=== PATIENT | female | born 1955 | race Caucasian/White ===

== ENCOUNTER 2020-02-10 05:54 | Inpatient (IN) | payer SELFPAY ==
[2020-02-10 06:37] LABS: Actual Bicarbonate (HCO3a) 23.4 mEq/L (22-28); Analyzer IN Cardio ER; Base Excess (BEa) -2.3 mEq/L (-2.0 to +3.0); CO2 Tension 43.7 mmHg (35.0-45.0); Calcium, Ionized (arterial) 1.25 mmol/L (1.12-1.30); Carboxyhemoglobin (COHb) 2.1 gm% (0.0-3.0); Hemoglobin (Hb) 17.2 g/dL (12.0-16.0); Potassium - ABG Lab 4.08 mmol/L (3.70-5.30); pH, Arterial 7.35 (7.35-7.45)
[2020-02-10 06:41] LABS: ALV-art Gradient 73.015 mmHg (0-20); Puncture Site LRA
[2020-02-10 06:50] LABS: #Basophils 0.1 thou/uL (0.0-0.2); #Eosinphils 0.1 thou/uL (0.0-0.7); #Lymphocytes 1.9 thou/uL (1.20-3.40); #Monocytes 0.7 thou/uL (0.11-0.59); #Neutrophils 8.6 thou/uL (1.40-6.50); %Basophils 0.5 % (0.0-1.0); %Eosinophils 1.1 % (0.0-10.0); %Lymphocytes 16.7 % (21.0-51.0); %Monocytes 6.4 % (0.0-10.0); %Neutrophils 75.2 % (42.0-75.0); Hemoglobin 17.2 g/dL (12.0-16.0); Mean Corpuscular HGB CONC 32.2 g/dL (32.0-36.0); Mean Corpuscular Hemoglobin 31.8 pg (27.0-31.0); Mean Corpuscular Volume 98.8 fL (78.0-98.0); Mean Platelet Volume 9.2 fL (7.4-10.4); Platelet Count 192 thou/uL (130-400); RBC Distribution Width 12.3 % (11.5-14.5); White Blood Cell (WBC) Count 11.4 thou/uL (4.8-10.8)
[2020-02-10 07:13] LABS: ALT (SGPT) 10 U/L (8-55); AST (SGOT) 15 U/L (5-34); Albumin 4.5 g/dL (3.4-4.8); Alkaline Phosphatase 103 U/L (40-110); Anion Gap 16 mmol/L (10-20); BUN (Urea Nitrogen) 10 mg/dL (9.8-20.1); Bilirubin, Total 0.6 mg/dL (0.2-1.2); Calc. Creatinine Clearance 0 mL/min (70-130); Calcium 9.2 mg/dL (7.8-10.44); Carbon Dioxide 21 mmol/L (23-31); Chloride 107 mmol/L (98-107); Globulin 3.1 g/dL (2.4-3.5); Glucose 165 mg/dL (80-115); Potassium 4.1 mmol/L (3.5-5.1); Protein, Total 7.6 g/dL (6.0-8.3); Sodium 140 mmol/L (136-145)
[2020-02-10] MEDS ORDERED: Ketorolac Tromethamine 30 MG/ML VIAL ONE (07:15)
[2020-02-10] MEDS ORDERED: Azithromycin 500 MG VIAL ONE (07:15)
[2020-02-10 07:33] LABS: CKMB 2.7 ng/mL (0-6.6)
[2020-02-10] MEDS ORDERED: Aspirin 325 MG TAB ONE (07:59)
--- NOTE | 2020-02-10 08:07 | RAD ---
RADIOGRAPH CHEST 1 VIEW: DATE: 02/10/2020 HISTORY: 64-year-old female with dyspnea FINDINGS: There is hyperinflation of the lungs, consistent with COPD. There is no evidence of airspace density, pulmonary edema, cardiomegaly, or pneumothorax. The lateral costophrenic angles are not effaced. Prominent interstitial markings. IMPRESSION: 1) No acute cardiopulmonary findings. 2) emphysema.
[2020-02-10 08:51] LABS: SARS-CoV-2 NAA Rapid Test Not Detected (NotDetected)
[2020-02-10] MEDS ORDERED: HumaLOG 300 UNITS/3 ML VIAL SC PRN ×2 (10:11)
[2020-02-10] MEDS ORDERED: Bisacodyl 10 MG SUPP PR PRN (10:11)
[2020-02-10] MEDS ORDERED: Senokot S 8.6-50 MG TAB PO PRN (10:11)
[2020-02-10] MEDS ORDERED: Dextrose 5% in Water 1,000 ML IV PRN (10:11)
[2020-02-10] MEDS ORDERED: Dextrose 50% Abboject 50 ML SYRINGE SLOW IVP PRN (10:11)
[2020-02-10] MEDS ORDERED: Ondansetron PF 4 MG/2 ML Vial IVP PRN (10:11)
[2020-02-10] MEDS ORDERED: Sodium Chloride 0.9% 1,000 ML IV SCH (10:15)
[2020-02-10] MEDS ORDERED: Levofloxacin 500 mg/D5W 100 ml Premix Bag ONE (12:17)
[2020-02-10] MEDS ORDERED: methylPREDNISolone Sod Succ 40 MG VIAL ONE (12:17)
[2020-02-10] MEDS: methylPREDNISolone Sod Succ 40 MG VIAL IVP SCH ×3 (12:25→23:28)
--- NOTE | 2020-02-10 12:30 | HP ---
REASON FOR ADMISSION: Acute on chronic COPD exacerbation, acute respiratory failure with hypoxia. HISTORY OF PRESENTING ILLNESS: The patient gives history of shortness of breath for the last 2 days or so now. This has been progressively getting worse to the point that she was tripoding and summoned EMS. She has taken multiple nebulization and inhalers at home despite which her shortness of breath persisted. She is not on any home oxygen. She has never been intubated in the past. The patient continues to smoke half pack a day. No fever. She has cough with expectoration of yellowish sputum. No exposure to COVID as such per the patient. She is taking care of her sick at home per the patient. PAST MEDICAL AND SURGICAL HISTORY: History of COPD, hypertension. No heart disease. No prior surgeries per the patient. CURRENT MEDICATIONS: 1. Lisinopril 2.5 mg p.o. daily. 2. Singulair 10 mg p.o. daily. 3. DuoNeb q.4 hourly p.r.n. 4. Albuterol inhaler q.6 hourly p.r.n. 5. Symbicort inhaler 2 puffs twice daily. ALLERGIES: NO KNOWN DRUG ALLERGIES. PERSONAL HISTORY: Smokes half pack a day. Does not abuse alcohol or drugs. She lives at home with her , who is sick apparently and takes care of him. FAMILY HISTORY: Mother at the age of 68, she had massive MD. Father at the age of 75 from natural causes. CODE STATUS: Full. Power of digital specialist is her or any of her 6 children. REVIEW OF SYSTEMS: CONSTITUTIONAL: Negative for weight loss or gain, ability to conduct usual activities. SKIN: Negative for rash, itching. EYES: Negative for double vision, pain. ENT/MOUTH: Negative for nose bleeding, neck stiffness, pain, tenderness. CARDIOVASCULAR: Negative for palpitations, dyspnea on exertion, orthopnea. RESPIRATORY: Negative for shortness of breath, wheezing, cough, hemoptysis, fever or night sweats. GASTROINTESTINAL: Negative for poor appetite, abdominal pain, heartburn, nausea, vomiting, constipation, or diarrhea. GENITOURINARY: Negative for urgency, frequency, dysuria, nocturia. MUSCULOSKELETAL: Negative for pain, swelling. NEUROLOGIC/PSYCHIATRIC: Negative for anxiety, depression. ALLERGY/IMMUNOLOGIC: Negative for skin rash, bleeding tendency. PHYSICAL EXAMINATION: GENERAL: The patient is a 64-year-old female, who is currently in mild respiratory distress. VITAL SIGNS: Blood pressure 130/110, pulse 100 per minute, respiratory rate 24 per minute, temperature 98 degrees Fahrenheit, saturating 98% on 2 L nasal cannula. NECK: Supple. No elevated JVD. HEENT: Eyes, extraocular muscles intact. Pupils reacting to light. Oral cavity, mucous membranes are dry. No exudates or congestion. CARDIOVASCULAR SYSTEM: S1, S2 heard. Tachycardic. No murmur. RESPIRATORY SYSTEM: Air entry 1+, bilateral. Scattered wheezes plus, bilateral. Rhonchi plus, bilateral. ABDOMEN: Soft, bowel sounds heard. No tenderness, rigidity, or guarding. EXTREMITIES: No peripheral edema or calf tenderness. VASCULAR SYSTEM: Peripheral pulses 1+, bilateral. No ischemic ulcers or gangrene. CENTRAL NERVOUS SYSTEM: No gross focal motor deficits noted. The patient is alert, awake, and oriented well. PSYCHIATRIC SYSTEM: The patient's mood is euthymic. No hallucinations or delusions. LABORATORY DATA: Chest x-ray done shows changes of emphysema. No acute infiltrate. EKG done shows sinus rhythm at 106 beats per minute. There is Q-wave seen in V1, V2, V3. Troponin I is 0.06. BNP 42. COVID-19 PCR is negative. Albumin 4.5. Liver enzymes within normal limits. BUN 10, creatinine 0.6, serum bicarb 21, serum glucose 165. Blood gas done shows a pH of 7.35, pCO2 of 43, pO2 of 72. White count of 11, H and H 17 and 53, platelet count 192 with 75% neutrophils, MCV is 98. CLINICAL IMPRESSION AND PLAN: The patient will be admitted to medical floor for acute on chronic obstructive pulmonary disease exacerbation, acute respiratory failure with hypoxia with known history of smoking. The patient has chronic emphysema based on xray and heavy history of smoking. She will be on DuoNeb q.6 hourly, empiric Levaquin, Solu-Medrol 40 mg IV q.6 hourly. We will also place her on normal saline at 60 mL/hour. Initial COVID screen is negative. The patient is full code. I have discussed this with her. We will consult Dr. Mcdonald if she were to get worse, she will be placed on BiPAP and transferred to [facility]. For now, she will be on a heart healthy diet and we will closely monitor her on medical floor. Job ID: [id number] MTDLior
[2020-02-10] MEDS: Guaifenesin DM 100-10/5 ML UDCUP PO PRN (19:31)
[2020-02-10] MEDS: Famotidine 20 MG TAB PO SCH (19:31)
[2020-02-11] MEDS: methylPREDNISolone Sod Succ 40 MG VIAL IVP SCH ×4 (05:28→23:12)
[2020-02-11 07:15] LABS: #Monocytes 0.3 thou/uL (0.11-0.59); #Neutrophils 7.5 thou/uL (1.40-6.50); %Basophils 0.3 % (0.0-1.0); %Lymphocytes 11.5 % (21.0-51.0); %Monocytes 3.5 % (0.0-10.0); %Neutrophils 84.7 % (42.0-75.0); Hemoglobin 15.4 g/dL (12.0-16.0); Mean Corpuscular HGB CONC 32.5 g/dL (32.0-36.0); Mean Corpuscular Hemoglobin 31.6 pg (27.0-31.0); Mean Corpuscular Volume 97.4 fL (78.0-98.0); Mean Platelet Volume 9.2 fL (7.4-10.4); Platelet Count 185 thou/uL (130-400); RBC Distribution Width 12.2 % (11.5-14.5); Red Blood Cell (RBC) Count 4.89 mill/uL (4.20-5.40); White Blood Cell (WBC) Count 8.8 thou/uL (4.8-10.8)
[2020-02-11 07:25] LABS: Chloride 104 mmol/L (98-107); Potassium 4.4 mmol/L (3.5-5.1); Sodium 139 mmol/L (136-145)
[2020-02-11 07:26] LABS: Calcium 9.3 mg/dL (7.8-10.44); Glucose 141 mg/dL (80-115)
[2020-02-11 07:28] LABS: Carbon Dioxide 26 mmol/L (23-31)
[2020-02-11 07:30] LABS: Calc. Creatinine Clearance 0 mL/min (70-130)
[2020-02-11 07:31] LABS: BUN (Urea Nitrogen) 14 mg/dL (9.8-20.1)
[2020-02-11] MEDS: Enoxaparin Sodium 40 MG/0.4 ML SYRINGE SC SCH (08:06)
[2020-02-11] MEDS: Famotidine 20 MG TAB PO SCH ×2 (08:06→20:19)
[2020-02-11 08:18] LABS: Anion Gap 13 mmol/L (10-20)
[2020-02-11] MEDS ORDERED: FLU VACC QS2020-21(6MOS UP)/PF 60 MCG/0.5 ML SYRINGE IM ONE (09:00)
--- NOTE | 2020-02-11 10:21 | PDOC.HOSPP ---
- Subjective Encounter Date: 02/11/20 Encounter Time: 08:45 Subjective: sob and wheezing is better is eating her breakfast - Objective Vital Signs & Weight: Vital Signs (12 hours) Temp Pulse Resp BP Pulse Ox 02/11/20 10:08 101 H 24 H 100 02/11/20 08:00 98.1 F 99 24 H 140/88 98 02/11/20 05:38 92 20 99 02/11/20 04:55 97.8 F 92 18 117/82 99 02/10/20 23:53 99 22 H 92 L 02/10/20 23:35 97.8 F 92 20 123/84 99 I&O: 02/10/20 02/11/20 02/12/20 06:59 06:59 06:59 Intake Total 1240 Output Total 500 Balance 740 Result Diagrams: 02/11/20 07:05 02/11/20 07:05 Additional Labs: Accuchecks 02/11/20 02/10/20 02/10/20 04:23 20:14 17:55 POC Glucose 130 H 158 H 134 H Hospitalist ROS - Medication Medications: Active Medications Generic Name Dose Route Start Last Admin Trade Name Freq PRN Reason Stop Dose Admin Albuterol/Ipratropium 3 ml 02/10/20 13:00 02/11/20 05:38 Ipratropium/Albuterol Sulfate 3 Ml Neb NEB 3 ml [id number] EWA Administration Albuterol/Ipratropium 3 ml 02/10/20 19:09 02/11/20 10:08 Ipratropium/Albuterol Sulfate 3 Ml Neb NEB 3 ml Q4H PRN Administration SOB/WHEEZE Enoxaparin Sodium 40 mg 02/11/20 09:00 02/11/20 08:06 Enoxaparin Sodium 40 Mg/0.4 Ml Syringe SC 40 mg 0900 EWA Administration Famotidine 20 mg 02/10/20 21:00 02/11/20 08:06 Famotidine 20 Mg Tab PO 20 mg BID EWA Administration Guaifenesin/Dextromethorphan 15 ml 02/10/20 10:11 02/10/20 19:31 Guaifenesin Dm 100-10/5 Ml Udcup PO 15 ml Q4H PRN Administration Cough Levofloxacin 500 mg/ Device 100 mls @ 100 mls/hr 02/10/20 12:00 02/10/20 12:25 IVPB 100 mls 1200 EWA Administration Methylprednisolone Sodium Succinate 40 mg 02/10/20 12:00 02/11/20 05:28 Methylprednisolone Sod Succ 40 Mg Vial IVP 40 mg Q6HR EWA Administration - Exam General Appearance: awake alert Eye: PERRL, anicteric sclera ENT: no oropharyngeal lesions, moist mucosa Neck: supple, no JVD Heart: RRR, no murmur Respiratory: no rales, rhonchi, wheezes Gastrointestinal: soft, non-tender, non-distended, normal bowel sounds Extremities: no cyanosis, no edema Neurological: cranial nerve grossly intact, no focal deficits Psychiatric: normal affect, A&O x 3 Hosp A/P (1) COPD exacerbation Code(s): J44.1 - CHRONIC OBSTRUCTIVE PULMONARY DISEASE W (ACUTE) EXACERBATION Status: Acute (2) Acute respiratory failure with hypoxia Code(s): J96.01 - ACUTE RESPIRATORY FAILURE WITH HYPOXIA Status: Acute (3) Tobacco abuse Code(s): Z72.0 - TOBACCO USE Status: Chronic (4) HTN (hypertension) Code(s): I10 - ESSENTIAL (PRIMARY) HYPERTENSION Status: Chronic Qualifiers: Hypertension type: essential hypertension Qualified Code(s): I10 - Essential (primary) hypertension - Plan is slowly getting better on steroids, empiric chandler mcneill and is on 2 lts NC now to mobilize more around her bed hemostable encourage po fluid intake
[2020-02-11] MEDS: Acetaminophen 325 MG TAB PO PRN (11:40)
[2020-02-11] MEDS: Guaifenesin DM 100-10/5 ML UDCUP PO PRN (20:20)
[2020-02-12] MEDS: methylPREDNISolone Sod Succ 40 MG VIAL IVP SCH ×4 (05:09→23:50)
[2020-02-12 06:35] VITALS: BMI 19.5
[2020-02-12] MEDS: Enoxaparin Sodium 40 MG/0.4 ML SYRINGE SC SCH (08:20)
[2020-02-12] MEDS: Famotidine 20 MG TAB PO SCH ×2 (08:20→20:34)
[2020-02-12] MEDS ORDERED: Calcium Carbonate 500 MG ChewTAB PO PRN (08:39)
[2020-02-12] MEDS: Acetaminophen 325 MG TAB PO PRN (09:33)
[2020-02-12] MEDS: Guaifenesin DM 100-10/5 ML UDCUP PO PRN (12:27)
--- NOTE | 2020-02-12 12:45 | EKG ---
Test Reason : Blood Pressure : / mmHG Vent. Rate : 106 BPM Atrial Rate : 106 BPM P-R Int : 144 ms QRS Dur : 068 ms QT Int : 324 ms P-R-T Axes : 095 117 091 degrees QTc Int : 430 ms Suspect arm lead reversal, interpretation assumes no reversal Sinus tachycardia Biatrial enlargement Right axis deviation Anteroseptal infarct , age undetermined Abnormal ECG Confirmed by JEANNIE BERGMAN ([id number]), business editor SAMMY QURESHI ([id number]) on 02/12/2020 12:44:39 PM Referred By: Confirmed By:JEANNIE BERGMAN
[2020-02-12] MEDS ORDERED: Loratadine 10 MG TAB PO PRN (13:33)
--- NOTE | 2020-02-12 13:34 | PDOC.HOSPP ---
- Subjective Encounter Date: 02/12/20 Encounter Time: 13:34 Subjective: F/u: COPD She still is persistent tachypneic and out of breath. She says she felt better yesterday and then worsened again today and is not sure why. She has been smoking since the age of 18, 1/2 pack daily . Her symptoms worsened when anyone used her dryer. She states she discovered excessive amounts of lint coming from her dryer which was replaced. She has a dog at home, no other pets She reports some indigestion today - Objective Vital Signs & Weight: Vital Signs (12 hours) Temp Pulse Resp BP Pulse Ox 02/12/20 11:15 97.8 F 109 H 20 126/82 100 02/12/20 08:24 99 02/12/20 08:23 97.7 F 101 H 24 H 130/86 96 02/12/20 07:52 102 H 16 02/12/20 05:14 95 18 100 Weight Weight 121 lb 7 oz I&O: 02/11/20 02/12/20 02/13/20 06:59 06:59 06:59 Intake Total 1240 1150 Output Total 500 450 Balance 740 700 Result Diagrams: 02/11/20 07:05 02/11/20 07:05 Additional Labs: Accuchecks 02/11/20 19:56 POC Glucose 215 H Hospitalist ROS - Review of Systems Constitutional: denies: fever, chills - Medication Medications: Active Medications Generic Name Dose Route Start Last Admin Trade Name Freq PRN Reason Stop Dose Admin Acetaminophen 650 mg 02/10/20 10:11 02/12/20 09:33 Acetaminophen 325 Mg Tab PO 650 mg Q4H PRN Administration Headache/Fever/Mild Pain (1-3) Albuterol/Ipratropium 3 ml 02/10/20 13:00 02/12/20 07:52 Ipratropium/Albuterol Sulfate 3 Ml Neb NEB 3 ml [id number] EWA Administration Albuterol/Ipratropium 3 ml 02/10/20 19:09 02/11/20 10:08 Ipratropium/Albuterol Sulfate 3 Ml Neb NEB 3 ml Q4H PRN Administration SOB/WHEEZE Calcium Carbonate 1,000 mg 02/12/20 08:39 02/12/20 09:33 Calcium Carbonate 500 Mg Chewtab PO 1,000 mg DAILYPRN PRN Administration Heartburn or Indigestion Enoxaparin Sodium 40 mg 02/11/20 09:00 02/12/20 08:20 Enoxaparin Sodium 40 Mg/0.4 Ml Syringe SC 40 mg 0900 EWA Administration Famotidine 20 mg 02/10/20 21:00 02/12/20 08:20 Famotidine 20 Mg Tab PO 20 mg BID EWA Administration Guaifenesin/Dextromethorphan 15 ml 02/10/20 10:11 02/12/20 12:27 Guaifenesin Dm 100-10/5 Ml Udcup PO 15 ml Q4H PRN Administration Cough Levofloxacin 500 mg/ Device 100 mls @ 100 mls/hr 02/10/20 12:00 02/12/20 12:17 IVPB 100 mls 1200 EWA Administration Methylprednisolone Sodium Succinate 40 mg 02/10/20 12:00 02/12/20 12:16 Methylprednisolone Sod Succ 40 Mg Vial IVP 40 mg Q6HR EWA Administration - Exam General Appearance: NAD, awake alert Eye: PERRL, anicteric sclera ENT: normocephalic atraumatic, no oropharyngeal lesions Neck: no JVD Heart: RRR, no murmur, no gallops, no rubs Respiratory - other findings: crackles bilaterally with some wheezing Gastrointestinal: soft, non-tender, non-distended, normal bowel sounds Extremities: no cyanosis, no clubbing, no edema Skin: normal turgor, no lesions, no rashes Hosp A/P - Plan This is a 64 yewra old lady with COPD presenting with shortness of breath x 2 days #Acute hypoxic respiratory failure secondary to COPD exacerbation - continue duonebs and albuterol. Continue IV steroids and levaquin - add mucinex 600 mg po bid - add symbicort bid, resume home singulair - repeat chest X ray, if any signs of pneumonia will switch antibiotics to ceftriaxone/azithromycin - wean sats to 92% #Sinus tachycardia #Elevated troponin - likely supply demand ischemia. No chest pain - will check ECHO #Indigestion - continue pepcid
[2020-02-12] MEDS ORDERED: guaiFENesin ER 600 MG TAB PO SCH (14:00)
[2020-02-12] MEDS: Mometasone 200 MCG/Formoterol 5 MCG 120 PUFF INHALER INH SCH ×2 (14:39→20:07)
[2020-02-12 15:14] LABS: CKMB 6.8 ng/mL (0-6.6)
--- NOTE | 2020-02-12 16:27 | RAD ---
Exam: Chest one view HISTORY:Persistent tachypnea Comparison: 02/10/2020 FINDINGS: Cardiac silhouette: Normal Aorta: Atherosclerotic Pulmonary vessels: Normal Costophrenic angles: Clear LUNGS: Hyperinflated. Emphysematous changes predominantly in the right upper lobe. 1.2 cm nodule proj ects over the right lung base. Nipple shadow suspected. Confirmation with nipple markers. Pneumothorax: None Osseous abnormalities: None IMPRESSION: 1. Questionable nodule versus nipple markers projecting over the right lower lobe. 2 view chest radio graph with nipple markers is recommended. 2. Emphysematous changes without evidence of consolidation. Code lung nodule CODE T
[2020-02-12 18:19] LABS: CKMB 5.9 ng/mL (0-6.6)
[2020-02-12] MEDS: guaiFENesin ER 600 MG TAB PO SCH (20:34)
[2020-02-12] MEDS: Montelukast Sodium 10 mg Tablet PO SCH (20:34)
[2020-02-13] MEDS: methylPREDNISolone Sod Succ 40 MG VIAL IVP SCH ×3 (05:46→17:28)
[2020-02-13] MEDS: Mometasone 200 MCG/Formoterol 5 MCG 120 PUFF INHALER INH SCH ×2 (07:37→18:55)
--- NOTE | 2020-02-13 09:38 | PDOC.HOSPP ---
- Subjective Encounter Date: 02/13/20 Encounter Time: 09:36 Subjective: F/u: COPD THe patient has not gotten out of bed yet. She says she is gasping with just small movements. She has a mild dry cough. She says she feels 100% better than when she first came in. She is still tachycardic with heart rate 115. I offered CTA to rule out PE, but patient refused Mucinex has helped her ECHO done this am - Objective Vital Signs & Weight: Vital Signs (12 hours) Temp Pulse Resp BP Pulse Ox 02/13/20 07:26 92 14 02/13/20 07:20 97.6 F 91 20 132/85 100 02/13/20 03:17 85 18 96 02/13/20 02:02 83 16 100 02/12/20 23:50 90 18 100 Weight Weight 121 lb 7 oz I&O: 02/12/20 02/13/20 02/14/20 06:59 06:59 06:59 Intake Total 1150 1080 Output Total 450 550 Balance 700 530 Result Diagrams: 02/11/20 07:05 02/11/20 07:05 Hospitalist ROS - Review of Systems Constitutional: denies: fever, chills - Medication Medications: Active Medications Generic Name Dose Route Start Last Admin Trade Name Freq PRN Reason Stop Dose Admin Acetaminophen 650 mg 02/10/20 10:11 02/12/20 09:33 Acetaminophen 325 Mg Tab PO 650 mg Q4H PRN Administration Headache/Fever/Mild Pain (1-3) Albuterol/Ipratropium 3 ml 02/10/20 13:00 02/13/20 07:26 Ipratropium/Albuterol Sulfate 3 Ml Neb NEB 3 ml [id number] EWA Administration Albuterol/Ipratropium 3 ml 02/10/20 19:09 02/11/20 10:08 Ipratropium/Albuterol Sulfate 3 Ml Neb NEB 3 ml Q4H PRN Administration SOB/WHEEZE Calcium Carbonate 1,000 mg 02/12/20 08:39 02/12/20 09:33 Calcium Carbonate 500 Mg Chewtab PO 1,000 mg DAILYPRN PRN Administration Heartburn or Indigestion Enoxaparin Sodium 40 mg 02/11/20 09:00 02/12/20 08:20 Enoxaparin Sodium 40 Mg/0.4 Ml Syringe SC 40 mg 0900 EWA Administration Famotidine 20 mg 02/10/20 21:00 02/12/20 20:34 Famotidine 20 Mg Tab PO 20 mg BID EWA Administration Guaifenesin 600 mg 02/12/20 21:00 02/12/20 20:34 Guaifenesin Er 600 Mg Tab PO 600 mg Q12HR EWA Administration Guaifenesin/Dextromethorphan 15 ml 02/10/20 10:11 02/12/20 12:27 Guaifenesin Dm 100-10/5 Ml Udcup PO 15 ml Q4H PRN Administration Cough Levofloxacin 500 mg 02/13/20 06:00 02/13/20 05:45 Levofloxacin 500 Mg Tab PO 500 mg 0600 EWA Administration Methylprednisolone Sodium Succinate 40 mg 02/10/20 12:00 02/13/20 05:46 Methylprednisolone Sod Succ 40 Mg Vial IVP 40 mg Q6HR EWA Administration Mometasone Furoate/Formoterol Fumar 1 puff 02/12/20 13:31 02/13/20 07:37 Mometasone 200 Mcg/Formoterol 5 Mcg 120 Puff Inhaler INH 1 puff BID-RT EWA Administration Montelukast Sodium 10 mg 02/12/20 21:00 02/12/20 20:34 Montelukast Sodium 10 Mg Tablet PO 10 mg QPM EWA Administration - Exam General Appearance: NAD, awake alert Eye: PERRL, anicteric sclera ENT: normocephalic atraumatic Neck: no JVD Heart: RRR, no murmur, no gallops, no rubs Respiratory - other findings: diminished breath sounds with mild crackles at bases and some wheezing Gastrointestinal: soft, non-tender, non-distended Extremities: no edema Hosp A/P - Plan This is a 64 yewra old lady with COPD presenting with shortness of breath x 2 days #Acute hypoxic respiratory failure secondary to COPD exacerbation - continue duonebs and albuterol. Continue IV steroids and levaquin - continue mucinex 600 mg po bid, dulera, singulair - repeat chest X Ray shows no pneumonia - oxygen weaned to 1L #Sinus tachycardia #Elevated troponin - likely supply demand ischemia. Troponin downtrending, no chest pain. ECHO is pending #Indigestion - continue pepcid
[2020-02-13] MEDS: Famotidine 20 MG TAB PO SCH ×2 (09:45→20:20)
[2020-02-13] MEDS: Enoxaparin Sodium 40 MG/0.4 ML SYRINGE SC SCH (09:45)
[2020-02-13] MEDS: guaiFENesin ER 600 MG TAB PO SCH ×2 (09:45→20:20)
[2020-02-13] MEDS: Acetaminophen 325 MG TAB PO PRN (11:24)
[2020-02-13] MEDS: Guaifenesin DM 100-10/5 ML UDCUP PO PRN (17:33)
[2020-02-13] MEDS: Montelukast Sodium 10 mg Tablet PO SCH (20:20)
[2020-02-14] MEDS: methylPREDNISolone Sod Succ 40 MG VIAL IVP SCH ×3 (01:19→11:04)
[2020-02-14] MEDS: Mometasone 200 MCG/Formoterol 5 MCG 120 PUFF INHALER INH SCH ×2 (08:13→20:08)
[2020-02-14] MEDS: Famotidine 20 MG TAB PO SCH ×2 (08:38→20:12)
[2020-02-14] MEDS: Enoxaparin Sodium 40 MG/0.4 ML SYRINGE SC SCH (08:38)
[2020-02-14] MEDS: guaiFENesin ER 600 MG TAB PO SCH ×2 (08:38→20:12)
[2020-02-14] MEDS ORDERED: Communication Order-Pharmacy FS SCH (17:00)
--- NOTE | 2020-02-14 17:17 | CON ---
DATE OF CONSULTATION: REASON FOR CONSULTATION: New onset congestive heart failure. 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 HISTORY OF PRESENT ILLNESS: Ms. Tolentino is a 64-year-old woman who has no previous history of underlying coronary artery disease. She recently presented with COPD exacerbation. She states at this time it appeared worse than previous episodes. Unfortunately, she continues to smoke and has since the age of 19. No chest pain or pressure noted. She states she was having difficulty with ambulation in addition to wheezing. Her LVEF estimated at 20% to 25% on recent echo. PAST MEDICAL HISTORY: COPD, tobacco abuse, and hypertension. MEDICATIONS: Include: 1. Lisinopril. 2. Singulair. 3. DuoNeb. 4. Albuterol. 5. Symbicort. ALLERGIES: NONE. SOCIAL HISTORY: Positive tobacco use. No alcohol use. REVIEW OF SYSTEMS: Ten-point review of systems is reviewed and as above, otherwise negative. PHYSICAL EXAMINATION: VITAL SIGNS: Blood pressure 136/73, pulse 93, temperature 97.6. GENERAL: The patient is a pleasant female in no acute distress, appears stated age. HEAD, EYES, EARS, NOSE AND THROAT: Sclerae without icterus. MOUTH: Moist mucous membranes, normal palate. NECK: No jugular venous distention. Carotid upstroke is brisk. No bruits bilaterally. LUNGS: Clear to auscultation. HEART: Regular rate and rhythm, normal S1 and S2. ABDOMEN: Soft, nontender, nondistended. EXTREMITIES: No edema. PERTINENT LABORATORY DATA: Hemoglobin 15.4, hematocrit 47.6. Creatinine 0.67. CK-MB of 6.8 with a peak troponin 0.194. IMPRESSION: 1. New onset cardiomyopathy. 2. Chronic obstructive pulmonary disease. 3. Tobacco abuse. RECOMMENDATIONS: Ms. Tolentino does have some risk factors for early coronary artery disease. I would recommend coronary angiography plus PCI given high chance of this being an early coronary artery disease. I discussed the procedure in full detail with Ms. Tolentino. The risks of the procedure were also discussed. The risks of the procedure include but are not limited to the following: , stroke, UT, need for emergency surgery, loss of limb, bleeding, and infection, as well as a reaction to the dye causing kidney failure and needing long-term dialysis. I also discussed the risks of PCI to include all of the above including coronary dissection and perforation in addition to acute stent thrombosis and restenosis. All questions about the procedure were answered. Given the above, the patient agreed to proceed with coronary angiography and possible PCI. There were no complications to proceed with drug-coated stent placement if needed. Further recommendations will be pending the above. Job ID: [id number]
[2020-02-14] MEDS: Sodium Chloride 0.9% 1,000 ML IV SCH (17:54)
--- NOTE | 2020-02-14 18:38 | PDOC.HOSPP ---
- Subjective Encounter Date: 02/14/20 Encounter Time: 10:00 Subjective: F/u: COPD The patient is feeling better. Her cough has improved some. She is still tachycardic. She is down to 1L of oxygen. SHe gets very winded over the last few months with minimal exercise. She also has been having indigestion lately , and is wondering whether it was heart problems all this time. She also states she gets short of breath laying flat and cannot sleep upright - Objective Vital Signs & Weight: Vital Signs (12 hours) Temp Pulse Resp BP Pulse Ox 02/14/20 16:31 97.6 F 93 20 136/73 98 02/14/20 14:24 103 H 24 H 95 02/14/20 12:15 98.1 F 103 H 20 136/87 96 02/14/20 08:41 95 02/14/20 08:13 85 18 98 02/14/20 07:51 97.9 F 74 20 124/81 95 Weight Weight 121 lb 7 oz I&O: 02/13/20 02/14/20 02/15/20 06:59 06:59 06:59 Intake Total 1080 500 Output Total 550 250 Balance 530 250 Result Diagrams: 02/11/20 07:05 02/11/20 07:05 Hospitalist ROS - Review of Systems Constitutional: reports: chills. denies: fever - Medication Medications: Active Medications Generic Name Dose Route Start Last Admin Trade Name Freq PRN Reason Stop Dose Admin Acetaminophen 650 mg 02/10/20 10:11 02/13/20 11:24 Acetaminophen 325 Mg Tab PO 650 mg Q4H PRN Administration Headache/Fever/Mild Pain (1-3) Albuterol/Ipratropium 3 ml 02/10/20 13:00 02/14/20 14:24 Ipratropium/Albuterol Sulfate 3 Ml Neb NEB 3 ml [id number] EWA Administration Albuterol/Ipratropium 3 ml 02/10/20 19:09 02/11/20 10:08 Ipratropium/Albuterol Sulfate 3 Ml Neb NEB 3 ml Q4H PRN Administration SOB/WHEEZE Calcium Carbonate 1,000 mg 02/12/20 08:39 02/12/20 09:33 Calcium Carbonate 500 Mg Chewtab PO 1,000 mg DAILYPRN PRN Administration Heartburn or Indigestion Enoxaparin Sodium 40 mg 02/11/20 09:00 02/14/20 08:38 Enoxaparin Sodium 40 Mg/0.4 Ml Syringe SC 02/14/20 23:59 40 mg 0900 EWA Administration Famotidine 20 mg 02/10/20 21:00 02/14/20 08:38 Famotidine 20 Mg Tab PO 20 mg BID EWA Administration Guaifenesin 600 mg 02/12/20 21:00 02/14/20 08:38 Guaifenesin Er 600 Mg Tab PO 600 mg Q12HR EWA Administration Guaifenesin/Dextromethorphan 15 ml 02/10/20 10:11 02/13/20 17:33 Guaifenesin Dm 100-10/5 Ml Udcup PO 15 ml Q4H PRN Administration Cough Sodium Chloride 1,000 mls @ 100 mls/hr 02/14/20 17:00 02/14/20 17:54 Normal Saline 0.9% IV 1,000 mls .Q10H EWA Administration Levofloxacin 500 mg 02/13/20 06:00 02/14/20 05:40 Levofloxacin 500 Mg Tab PO 500 mg 0600 EWA Administration Mometasone Furoate/Formoterol Fumar 1 puff 02/12/20 13:31 02/14/20 08:13 Mometasone 200 Mcg/Formoterol 5 Mcg 120 Puff Inhaler INH 1 puff BID-RT EWA Administration Montelukast Sodium 10 mg 02/12/20 21:00 02/13/20 20:20 Montelukast Sodium 10 Mg Tablet PO 10 mg QPM EWA Administration - Exam General Appearance: NAD, awake alert Eye: PERRL, anicteric sclera ENT: normocephalic atraumatic, no oropharyngeal lesions Neck: no JVD Heart: RRR, no murmur, no gallops, no rubs Respiratory - other findings: minimal wheezing Gastrointestinal: soft, non-tender, non-distended, normal bowel sounds Extremities: no cyanosis, no clubbing, no edema Skin: normal turgor, no lesions, no rashes Hosp A/P - Plan ECHO: EF 20-25%, apex severely hypokinetic This is a 64 year old lady with COPD presenting with shortness of breath x 2 d ays #Acute hypoxic respiratory failure secondary to COPD exacerbation and possibly acute systolic heart failure - she is down to 1L of oxygen but still tachycardic. Repeat chest Xray shows no pneumonia - wean steroids to 40mg IV daily. Continue mucinex 600 mg po bid, sobeida cleary - ECHO shows EF 20-25%, apex severely hypokinetic. BNP is 250. No signs of edema on exam. Cardiology was consulted and recommended a cath, so will hold off on diuresis for now #Sinus tachycardia #Elevated troponin - likely supply demand ischemia. Troponin downtrending, no chest pain. ECHO shows akinesis - started diltiazem 30 mg bid #Indigestion - continue pepcid
[2020-02-14] MEDS ORDERED: Furosemide 20 MG/2 ML VIAL SLOW IVP SCH (18:45)
[2020-02-14] MEDS: Montelukast Sodium 10 mg Tablet PO SCH (20:12)
[2020-02-15] MEDS: Sodium Chloride 0.9% 1,000 ML IV SCH ×2 (04:15→18:35)
[2020-02-15] MEDS ORDERED: Furosemide 40 MG/4 ML VIAL IVP SCH (06:15)
[2020-02-15] MEDS: Mometasone 200 MCG/Formoterol 5 MCG 120 PUFF INHALER INH SCH ×2 (07:25→18:28)
[2020-02-15] MEDS ORDERED: Heparin 0 ML ONE (07:59)
[2020-02-15 08:26] LABS: #Lymphocytes 1.8 thou/uL (1.20-3.40); #Monocytes 0.8 thou/uL (0.11-0.59); #Neutrophils 8.2 thou/uL (1.40-6.50); %Basophils 0.4 % (0.0-1.0); %Eosinophils 0.1 % (0.0-10.0); %Lymphocytes 16.6 % (21.0-51.0); %Monocytes 7.2 % (0.0-10.0); %Neutrophils 75.7 % (42.0-75.0); Hemoglobin 15.7 g/dL (12.0-16.0); Mean Corpuscular Hemoglobin 31.8 pg (27.0-31.0); Mean Corpuscular Volume 99.3 fL (78.0-98.0); Mean Platelet Volume 8.4 fL (7.4-10.4); Platelet Count 192 thou/uL (130-400); RBC Distribution Width 12.3 % (11.5-14.5); Red Blood Cell (RBC) Count 4.94 mill/uL (4.20-5.40); White Blood Cell (WBC) Count 10.8 thou/uL (4.8-10.8)
[2020-02-15 08:49] LABS: Anion Gap 14 mmol/L (10-20); BUN (Urea Nitrogen) 18 mg/dL (9.8-20.1); Calc. Creatinine Clearance 85 mL/min (70-130); Calcium 8.6 mg/dL (7.8-10.44); Carbon Dioxide 28 mmol/L (23-31); Chloride 102 mmol/L (98-107); Glucose 82 mg/dL (80-115); Potassium 3.8 mmol/L (3.5-5.1); Sodium 140 mmol/L (136-145)
[2020-02-15] MEDS ORDERED: Verapamil 5 MG/2 ML VIAL ONE (12:10)
[2020-02-15] MEDS ORDERED: Heparin 10,000 UNITS/ 10 ML VIAL ONE (12:10)
[2020-02-15] MEDS ORDERED: Nitroglycerin 100MG/250ML BOT 250 ML ONE (12:10)
[2020-02-15] MEDS ORDERED: hydrALAZINE 20 MG/ML VIAL ONE (12:15)
[2020-02-15] MEDS ORDERED: Fentanyl 100 MCG/2 ML VIAL ONE (12:27)
[2020-02-15] MEDS ORDERED: Midazolam HCl 2 mg/2 ml Vial ONE (12:28)
[2020-02-15] MEDS ORDERED: Iopamidol 370 76% 100 ML VIAL ONE (12:50)
[2020-02-15] MEDS: Famotidine 20 MG TAB PO SCH ×2 (13:35→21:29)
[2020-02-15] MEDS: predniSONE 20 MG TAB PO SCH (13:35)
[2020-02-15] MEDS: guaiFENesin ER 600 MG TAB PO SCH ×2 (13:35→21:29)
[2020-02-15] MEDS: Acetaminophen 325 MG TAB PO PRN (15:00)
--- NOTE | 2020-02-15 17:22 | PDOC.HOSPP ---
- Subjective Encounter Date: 02/15/20 Encounter Time: 08:00 non-verbal Subjective: F/u: COPD The patient is doing much better. She has minimal cough. She has some SOB on exertion. Cardiac cath was done today, showed insignificant disease per nurse Tachycardia - the patient has a normal heart rate now. She denies palpitations - Objective Vital Signs & Weight: Vital Signs (12 hours) Temp Pulse Resp BP Pulse Ox 02/15/20 15:30 98.7 F 81 26 H 101/65 90 L 02/15/20 14:44 80 18 94 L 02/15/20 13:39 97.6 F 84 19 105/79 94 L 02/15/20 11:29 97.8 F 69 18 133/79 94 L 02/15/20 07:24 70 16 95 02/15/20 07:16 97.8 F 70 16 148/91 H 95 Weight Weight 121 lb 7 oz I&O: 02/14/20 02/15/20 02/16/20 06:59 06:59 06:59 Intake Total 500 720 Output Total 250 500 Balance 250 220 Result Diagrams: 02/15/20 08:19 02/15/20 08:19 Hospitalist ROS - Review of Systems Constitutional: denies: fever, chills - Medication Medications: Active Medications Generic Name Dose Route Start Last Admin Trade Name Freq PRN Reason Stop Dose Admin Acetaminophen 650 mg 02/10/20 10:11 02/15/20 15:00 Acetaminophen 325 Mg Tab PO 650 mg Q4H PRN Administration Headache/Fever/Mild Pain (1-3) Albuterol/Ipratropium 3 ml 02/10/20 13:00 02/15/20 14:44 Ipratropium/Albuterol Sulfate 3 Ml Neb NEB 3 ml [id number] EWA Administration Albuterol/Ipratropium 3 ml 02/10/20 19:09 02/11/20 10:08 Ipratropium/Albuterol Sulfate 3 Ml Neb NEB 3 ml Q4H PRN Administration SOB/WHEEZE Calcium Carbonate 1,000 mg 02/12/20 08:39 02/12/20 09:33 Calcium Carbonate 500 Mg Chewtab PO 1,000 mg DAILYPRN PRN Administration Heartburn or Indigestion Diltiazem HCl 30 mg 02/14/20 21:00 02/15/20 05:59 Diltiazem Hcl 30 Mg Tablet PO 30 mg BID EWA Administration Famotidine 20 mg 02/10/20 21:00 02/15/20 13:35 Famotidine 20 Mg Tab PO 20 mg BID EWA Administration Guaifenesin 600 mg 02/12/20 21:00 02/15/20 13:35 Guaifenesin Er 600 Mg Tab PO 600 mg Q12HR EWA Administration Guaifenesin/Dextromethorphan 15 ml 02/10/20 10:11 02/13/20 17:33 Guaifenesin Dm 100-10/5 Ml Udcup PO 15 ml Q4H PRN Administration Cough Sodium Chloride 1,000 mls @ 100 mls/hr 02/14/20 17:00 02/15/20 04:15 Normal Saline 0.9% IV 1,000 mls .Q10H EWA Administration Levofloxacin 500 mg 02/13/20 06:00 02/15/20 05:59 Levofloxacin 500 Mg Tab PO 500 mg 0600 EWA Administration Mometasone Furoate/Formoterol Fumar 1 puff 02/12/20 13:31 02/15/20 07:25 Mometasone 200 Mcg/Formoterol 5 Mcg 120 Puff Inhaler INH 1 puff BID-RT EWA Administration Montelukast Sodium 10 mg 02/12/20 21:00 02/14/20 20:12 Montelukast Sodium 10 Mg Tablet PO 10 mg QPM EWA Administration Prednisone 40 mg 02/15/20 08:00 02/15/20 13:35 Prednisone 20 Mg Tab PO 40 mg QAM-WM EWA Administration - Exam General Appearance: NAD, awake alert Eye: PERRL, anicteric sclera ENT: normocephalic atraumatic, no oropharyngeal lesions Neck: no JVD Heart: RRR, no murmur, no gallops, no rubs Respiratory - other findings: mildly diminished Gastrointestinal: soft, non-tender, non-distended, normal bowel sounds Extremities: no cyanosis, no clubbing, no edema Skin: normal turgor, no lesions, no rashes Neurological: cranial nerve grossly intact, normal sensation to touch, no focal deficits, no new deficit Hosp A/P - Plan ECHO: EF 20-25%, apex severely hypokinetic This is a 64 year old lady with COPD presenting with shortness of breath x 2 days #Acute hypoxic respiratory failure secondary to COPD exacerbation and possibly acute systolic heart failure - she is down to 1L of oxygen but still tachycardic. Repeat chest Xray shows no pneumonia - steroids weaned to prednisone 40 mg daily - gave one dose lasix 40 mg IV this morning - ECHo shows EF 20-25%, life-vest is going to be ordered for the patient - home oxygen eval showed that the patient desaturated to 88%. Will re-evaluate tomorrow since patient is uninsured and may need home oxygen #Sinus tachycardia - improved #Elevated troponin - likely supply demand ischemia. Troponin downtrending, no chest pain. ECHO shows akinesis - continue diltiazem 30 mg bid #Indigestion - continue pepcid
[2020-02-15] MEDS: Montelukast Sodium 10 mg Tablet PO SCH (21:29)
[2020-02-16] MEDS: Mometasone 200 MCG/Formoterol 5 MCG 120 PUFF INHALER INH SCH ×2 (08:19→18:42)
[2020-02-16] MEDS: predniSONE 20 MG TAB PO SCH (08:39)
[2020-02-16] MEDS: guaiFENesin ER 600 MG TAB PO SCH ×2 (08:39→20:44)
[2020-02-16] MEDS: Famotidine 20 MG TAB PO SCH ×2 (08:39→20:43)
[2020-02-16] MEDS: Acetaminophen 325 MG TAB PO PRN (11:28)
--- NOTE | 2020-02-16 17:26 | PDOC.HOSPP ---
- Subjective Encounter Date: 02/16/20 Encounter Time: 11:00 Subjective: The patient reports shortness of breath with mild exertion. Her oxygen saturation was still 87% on room air today. She has only a mild cough, but on chest pain She states the diltiazem works great for her palpitations and wants to be discharged with this. - Objective Vital Signs & Weight: Vital Signs (12 hours) Temp Pulse Resp BP Pulse Ox 02/16/20 15:40 97.9 F 95 18 100/87 90 L 02/16/20 11:40 97.7 F 81 18 114/74 89 L 02/16/20 07:00 97.6 F 80 16 102/68 93 L Weight Weight 121 lb 7 oz I&O: 02/15/20 02/16/20 02/17/20 06:59 06:59 06:59 Intake Total 720 707 15 Output Total 500 1045 Balance 220 -338 15 Result Diagrams: 02/15/20 08:19 02/15/20 08:19 Hospitalist ROS - Review of Systems Constitutional: denies: fever, chills - Medication Medications: Active Medications Generic Name Dose Route Start Last Admin Trade Name Freq PRN Reason Stop Dose Admin Acetaminophen 650 mg 02/10/20 10:11 02/16/20 11:28 Acetaminophen 325 Mg Tab PO 650 mg Q4H PRN Administration Headache/Fever/Mild Pain (1-3) Albuterol/Ipratropium 3 ml 02/10/20 13:00 02/16/20 13:34 Ipratropium/Albuterol Sulfate 3 Ml Neb NEB 3 ml [id number] EWA Administration Albuterol/Ipratropium 3 ml 02/10/20 19:09 02/11/20 10:08 Ipratropium/Albuterol Sulfate 3 Ml Neb NEB 3 ml Q4H PRN Administration SOB/WHEEZE Calcium Carbonate 1,000 mg 02/12/20 08:39 02/12/20 09:33 Calcium Carbonate 500 Mg Chewtab PO 1,000 mg DAILYPRN PRN Administration Heartburn or Indigestion Diltiazem HCl 30 mg 02/14/20 21:00 02/16/20 08:39 Diltiazem Hcl 30 Mg Tablet PO 30 mg BID EWA Administration Famotidine 20 mg 02/10/20 21:00 02/16/20 08:39 Famotidine 20 Mg Tab PO 20 mg BID EWA Administration Guaifenesin 600 mg 02/12/20 21:00 02/16/20 08:39 Guaifenesin Er 600 Mg Tab PO 600 mg Q12HR EWA Administration Guaifenesin/Dextromethorphan 15 ml 02/10/20 10:11 02/13/20 17:33 Guaifenesin Dm 100-10/5 Ml Udcup PO 15 ml Q4H PRN Administration Cough Levofloxacin 500 mg 02/13/20 06:00 02/16/20 06:33 Levofloxacin 500 Mg Tab PO 500 mg 0600 EWA Administration Mometasone Furoate/Formoterol Fumar 1 puff 02/12/20 13:31 02/16/20 08:19 Mometasone 200 Mcg/Formoterol 5 Mcg 120 Puff Inhaler INH 1 puff BID-RT EWA Administration Montelukast Sodium 10 mg 02/12/20 21:00 02/15/20 21:29 Montelukast Sodium 10 Mg Tablet PO 10 mg QPM EWA Administration Prednisone 40 mg 02/15/20 08:00 02/16/20 08:39 Prednisone 20 Mg Tab PO 40 mg QAM-WM EWA Administration - Exam General Appearance: NAD, awake alert Eye: PERRL, anicteric sclera ENT: normocephalic atraumatic, no oropharyngeal lesions Neck: no JVD Heart: RRR, no murmur, no gallops, no rubs Respiratory: CTAB, no wheezes, no rales, no ronchi Gastrointestinal: soft, non-tender, non-distended, normal bowel sounds Extremities: no cyanosis, no clubbing, no edema Skin: normal turgor, no lesions, no rashes Neurological: cranial nerve grossly intact, normal sensation to touch, no weakness Hosp A/P - Plan ECHO: EF 20-25%, apex severely hypokinetic This is a 64 year old lady with COPD presenting with shortness of breath x 2 days #Acute hypoxic respiratory failure secondary to COPD exacerbation and possibly acute systolic heart failure - she is down to 1L of oxygen but still tachycardic. Repeat chest Xray shows no pneumonia - continue prednisone 40 mg daily - ECHo shows EF 20-25%, life-vest is going to be ordered for the patient, still awaiting - home oxygen ordered for the patient and still waiting on that as well #Sinus tachycardia - improved #Elevated troponin - likely supply demand ischemia. Troponin downtrending, no chest pain. ECHO shows akinesis - continue diltiazem 30 mg bid #Indigestion - continue pepcid Dispo : pending life vest and home oxygen
[2020-02-16] MEDS: Montelukast Sodium 10 mg Tablet PO SCH (20:44)
--- NOTE | 2020-02-17 05:00 | PRG ---
DATE OF SERVICE: 02/16/2020 SUBJECTIVE: Ms. Tolentino is doing well. She states she is feeling much better today. No current complaints. She is near her baseline. OBJECTIVE: VITAL SINGS: Blood pressure 114/74, pulse rate 81, temperature 97.7. LUNGS: Rhonchi and rales bilaterally. HEART: Regular rate and rhythm. ABDOMEN: Soft, nontender, and nondistended. EXTREMITIES: No edema. IMPRESSION: 1. Nonischemic cardiomyopathy. 2. Chronic obstructive pulmonary disease exacerbation. 3. Tobacco abuse. RECOMMENDATIONS: 1. The patient will need to be sent home on beta-roge therapy in addition to therapy. 2. She may require low-dose Lasix at home at 20 mg 1 p.o. every morning. 3. Recommend LifeVest. This has been ordered. 4. She likely will have recovery of her LVEF based on the findings and would recommend a repeat echo in three months to reassess her LVEF. Okay from my standpoint to discharge home when okay with primary care team once she receives her LifeVest and is on appropriate CHF medications. Job ID: [id number]
[2020-02-17] MEDS: Mometasone 200 MCG/Formoterol 5 MCG 120 PUFF INHALER INH SCH ×2 (06:52→17:12)
[2020-02-17] MEDS: predniSONE 20 MG TAB PO SCH (08:38)
[2020-02-17] MEDS: guaiFENesin ER 600 MG TAB PO SCH ×2 (08:39→20:51)
[2020-02-17] MEDS: Famotidine 20 MG TAB PO SCH ×2 (08:39→20:51)
[2020-02-17] MEDS: Digoxin 0.125 MG TAB PO SCH (09:17)
--- NOTE | 2020-02-17 11:44 | CON ---
DATE OF CONSULTATION: SUBJECTIVE: Ms. Tolentino is doing much better. She states she is back to her baseline. OBJECTIVE: VITAL SIGNS: Blood pressure 118/83, pulse 82, temperature 97.6. LUNGS: Mild wheezing bilaterally. HEART: Regular rate and rhythm. ABDOMEN: Soft, nontender, nondistended. EXTREMITIES: No edema. PERTINENT LABORATORY DATA: Hemoglobin 15.7. Creatinine 0.58. IMPRESSION: 1. Nonischemic cardiomyopathy. 2. Chronic obstructive pulmonary disease exacerbation. 3. Tobacco abuse. RECOMMENDATIONS: 1. Avoid use of beta-roge therapy due to active wheezing. 2. Discontinue Cardizem. 3. Add digoxin. 4. Add low-dose lisinopril. 5. LifeVest. 6. We will sign off. May attempt at low-dose beta-roge therapy as an outpatient once she is no longer wheezing, but at this point avoid use of a beta-roge therapy. She likely has takotsubo cardiomyopathy and will likely improve and we will reassess by echo as an outpatient. Job ID: [id number]
[2020-02-17] MEDS ORDERED: Lidocaine 1% PF 5 ML VIAL ONE (12:57)
[2020-02-17] MEDS ORDERED: Fentanyl 100 MCG/2 ML VIAL ONE (12:57)
[2020-02-17] MEDS ORDERED: Midazolam HCl 2 mg/2 ml Vial ONE (12:57)
[2020-02-17] MEDS: Lorazepam 0.5 MG TAB PO PRN ×2 (14:06→20:52)
--- NOTE | 2020-02-17 15:20 | PDOC.HOSPP ---
- Subjective Encounter Date: 02/17/20 Encounter Time: 10:00 Subjective: F/u: COPD and CHF The patient had a brief episode of shortness of breath this morning. Also is having panic attacks due to being overwhelmed filling out the paperwork for the life-vest per nursing. She has minimal cough - Objective Vital Signs & Weight: Vital Signs (12 hours) Temp Pulse Resp BP Pulse Ox 02/17/20 12:56 97 02/17/20 12:55 102 H 36 H 97 02/17/20 12:26 103 H 24 H 94 L 02/17/20 11:36 97.9 F 90 20 117/98 H 90 L 02/17/20 09:17 82 02/17/20 08:47 93 L 02/17/20 07:58 97.6 F 82 18 118/83 93 L 02/17/20 06:51 71 18 96 02/17/20 04:55 65 98/68 02/17/20 03:59 97.6 F 69 16 87/60 L 94 L Weight Weight 121 lb 7 oz I&O: 02/16/20 02/17/20 02/18/20 06:59 06:59 06:59 Intake Total 707 476 360 Output Total 1045 Balance -338 476 360 Result Diagrams: 02/15/20 08:19 02/15/20 08:19 Hospitalist ROS - Review of Systems Constitutional: denies: fever, chills - Medication Medications: Active Medications Generic Name Dose Route Start Last Admin Trade Name Freq PRN Reason Stop Dose Admin Acetaminophen 650 mg 02/10/20 10:11 02/16/20 11:28 Acetaminophen 325 Mg Tab PO 650 mg Q4H PRN Administration Headache/Fever/Mild Pain (1-3) Albuterol/Ipratropium 3 ml 02/10/20 13:00 02/17/20 12:26 Ipratropium/Albuterol Sulfate 3 Ml Neb NEB 3 ml [id number] EWA Administration Albuterol/Ipratropium 3 ml 02/10/20 19:09 02/11/20 10:08 Ipratropium/Albuterol Sulfate 3 Ml Neb NEB 3 ml Q4H PRN Administration SOB/WHEEZE Calcium Carbonate 1,000 mg 02/12/20 08:39 02/12/20 09:33 Calcium Carbonate 500 Mg Chewtab PO 1,000 mg DAILYPRN PRN Administration Heartburn or Indigestion Digoxin 0.125 mg 02/17/20 09:00 02/17/20 09:17 Digoxin 0.125 Mg Tab PO Not Given DAILY EWA Famotidine 20 mg 02/10/20 21:00 02/17/20 08:39 Famotidine 20 Mg Tab PO 20 mg BID EWA Administration Guaifenesin 600 mg 02/12/20 21:00 02/17/20 08:39 Guaifenesin Er 600 Mg Tab PO 600 mg Q12HR EWA Administration Guaifenesin/Dextromethorphan 15 ml 02/10/20 10:11 02/13/20 17:33 Guaifenesin Dm 100-10/5 Ml Udcup PO 15 ml Q4H PRN Administration Cough Lorazepam 0.5 mg 02/17/20 13:34 02/17/20 14:06 Lorazepam 0.5 Mg Tab PO 0.5 mg Q4H PRN Administration Anxiety Mometasone Furoate/Formoterol Fumar 1 puff 02/12/20 13:31 02/17/20 06:52 Mometasone 200 Mcg/Formoterol 5 Mcg 120 Puff Inhaler INH 1 puff BID-RT EWA Administration Montelukast Sodium 10 mg 02/12/20 21:00 02/16/20 20:44 Montelukast Sodium 10 Mg Tablet PO 10 mg QPM EWA Administration Prednisone 40 mg 02/15/20 08:00 02/17/20 08:38 Prednisone 20 Mg Tab PO 40 mg QAM-WM EWA Administration - Exam General Appearance: NAD, awake alert Eye: PERRL, anicteric sclera ENT: normocephalic atraumatic, no oropharyngeal lesions Neck: no JVD Heart: RRR, no murmur, no gallops, no rubs Respiratory: CTAB, no wheezes, no rales, no ronchi Respiratory - other findings: tachypneic Gastrointestinal: soft, non-tender, non-distended, normal bowel sounds Extremities: no cyanosis, no clubbing, no edema Skin: normal turgor, no lesions, no rashes Neurological: cranial nerve grossly intact, normal sensation to touch, no weakness, no focal deficits Hosp A/P - Plan ECHO: EF 20-25%, apex severely hypokinetic This is a 64 year old lady with COPD presenting with shortness of breath x 2 days #Acute hypoxic respiratory failure secondary to COPD exacerbation and possibly acute systolic heart failure - she is down to 1L of oxygen but still tachycardic. Repeat chest Xray shows no pneumonia - continue prednisone 40 mg daily x 2 more days. Discontinue levaquin - ECHo shows EF 20-25%, patient is s/p cardiac cath which showed mild CAD, unable to see the report, but per cardiology. Life-vest is ordered and pending. Will add aspirin and statin -Patient needs home oxygen as well, will not be delivered until life vest is here #Sinus tachycardia - improved #Elevated troponin - likely supply demand ischemia. Troponin downtrending, no chest pain. ECHO shows akinesis - switch to digoxin daily and discontinue diltiazem #Indigestion - continue pepcid Dispo : pending life vest and home oxygen
[2020-02-17] MEDS ORDERED: Aspirin 81 mg Enteric Coated Tablet PO SCH (15:45)
--- NOTE | 2020-02-17 16:59 | RAD ---
PORTABLE CHEST: 02/17/20 HISTORY: Tachypnea. COMPARISON: 02/12/20 exam. Heart size within normal limits. There are atherosclerotic changes of the aorta. The lungs are clear of infiltrates. IMPRESSION: No active intrathoracic disease. POS: KWASI
[2020-02-17] MEDS: Montelukast Sodium 10 mg Tablet PO SCH (20:52)
[2020-02-17] MEDS ORDERED: Atorvastatin Calcium 20 MG TAB PO SCH (21:00)
[2020-02-18] MEDS: Mometasone 200 MCG/Formoterol 5 MCG 120 PUFF INHALER INH SCH (07:17)
[2020-02-18] MEDS: predniSONE 20 MG TAB PO SCH (07:55)
[2020-02-18] MEDS: Digoxin 0.125 MG TAB PO SCH (07:55)
[2020-02-18] MEDS: guaiFENesin ER 600 MG TAB PO SCH (07:55)
[2020-02-18] MEDS: Famotidine 20 MG TAB PO SCH (07:55)
[2020-02-18] MEDS ORDERED: Aspirin 81 mg Enteric Coated Tablet PO SCH (09:00)
[2020-02-18] MEDS ORDERED: Lisinopril 5 MG TAB PO SCH (09:00)
--- NOTE | 2020-02-18 14:46 | PDOC.DS.DS ---
Provider - Provider Date of Admission: 02/10/20 10:11 Date of Discharge: 02/18/20 Admitting Provider: Jalen Garcia MD Primary Care Physician: [facility] Course - Hospital Course Hospital Course: Discharge Diagnoses: 1. Acute hypoxic respiratory failure secondary to COPD exacerbation vs acute systolic CHF 2. Tobacco abuse 3. Elevated troponin - likely supply demand ischemia 4. Anxiety Hospital Course: 1. Acute hypoxic respiratory failure secondary to COPD exacerbation vs acute systolic CHF: This is a 65 year old female with past medical history of COPD, tobacco abuse who presented to the ER with shortness of breath on exertion. The patient states she continues to smoke 10 cigarettes daily. Her chest X ray was normal on admission. She was treated with IV steroids, levaquin, dulera. Her cough and wheezing significantly improved. ECHO showed EF 20-25% with severely hypokinetic apex. Cardiology was consulted and cardiac cath was performed on 02/14 which showed mild CAD with no stents needed, I am unable to see the full report. The patient was started on aspirin, statin, lasix prn, and digoxin. Life-vest was approved for the patient prior to discharge. Home oxygen evaluation was done and showed that the patient desaturated to 87% on room air and 86% on exertion with improvement in her oxygen saturation to 90% with one liter. However given her tachycardia, she was placed at 2L saturating 96% at the time of discharge. THe patient can use 1L at rest and on exertion and can titrate gradually for comfort if needed for tachycardia. The patient has no insurance and so her medications were prescribed to [facility] pharmacy with the assistance of case management. 2. Elevated troponin - the patient had a mildly elevated troponin of 0.194. She had no chest naibl. Cardiac cath showed insignificant CAD. The patient will be discharged on aspirin and statin. 3. Tobacco abuse -the patient was prescribed nicotine gum on discharge. 4. Sinus tachycardia - the patient had persistently elevated heart rate up to 11 0 while in the hospital. She was started on diltiazem initially with improvement due to concern for beta-roge aggravating her COPD. She reported significant improvement with this. However, given her systolic CHF she was switched to digoxin instead with approval by cardiology. She also was given ativan for anxiety with improvement. Additional ativan was not prescribed on discharge, but consider at the discretion of her PCP> Pertinent Studies: Chest X ray: no acute disease Resuscitation Status: 02/10/20 10:07 Resuscitation Status Routine Resuscitation Status: FULL: Full Resuscitation Discussed with: POA: , has 6 children - Labs Lab Results: 02/15/20 08:19 02/15/20 08:19 Microbiology - Entire Visit 02/10/20 06:40 Venous blood - Right Arm Blood Culture - Final NO GROWTH IN 5 DAYS 02/10/20 06:40 Venous blood - Left Arm Blood Culture - Final NO GROWTH IN 5 DAYS - Physical Exam Vitals: Vital Signs (12 hours) Temp Pulse Resp BP BP Pulse Ox 02/18/20 13:49 104 H 20 02/18/20 11:42 98.3 F 103 H 17 109/77 95 02/18/20 07:56 84 118/68 02/18/20 07:55 84 02/18/20 07:47 96 02/18/20 07:34 97.5 F L 82 19 118/68 96 02/18/20 07:17 84 18 02/18/20 07:09 84 18 02/18/20 04:00 97.7 F 77 16 105/67 97 Weight Weight 121 lb 7 oz Physical Exam: The patient was seen and examined on the day of discharge. General: the patient is alert, awake, oriented times three. Gets short of breath with minimal movement CV: RRR, no murmurs, rubs, gallops Lungs: diminished breath sounds at the bases Abdomen: +BS, soft, nontender, nondistended Extremities: no edema Problem - Discharge Plan Plan of Treatment: Follow up with your primary care doctor in a week and Dr. Griggs in a week. Also please follow up with a centrifugal drier operator in a week. - Time spent with Patient (mins): 35 Plan - Discharge Medications Prescriptions: Nicotine Polacrilex [Nicotine Gum] 2 mg BUC Q2HR PRN #30 gum PRN Reason: Agitation Budesonide/Formoterol Fumarate [Budesonide-Formoterol 80-4.5] 10.2 gm IH BID #1 hfa.aer.ad Aspirin [Ecotrin Low Strength] 81 mg PO DAILY #30 tab Furosemide 20 mg PO DAILY PRN #30 tablet PRN Reason: Edema Digoxin [Lanoxin] 0.125 mg PO DAILY #30 tab Atorvastatin Calcium [Lipitor] 20 mg PO HS #30 tab Montelukast Sodium [Singulair] 10 mg PO QPM #30 tab Lisinopril [Zestril] 5 mg PO DAILY #30 tab Home Medications: Medication Instructions Recorded Confirmed Type Albuterol Sulfate [Albuterol 1 ampule NEB Q4HR PRN 02/10/20 02/10/20 History Sulfate Hfa] Ipratropium/Albuterol Sulfate 1 ampule NEB Q4HR PRN 02/10/20 02/10/20 History [DuoNeb] Aspirin [Ecotrin Low Strength] 81 mg PO DAILY #30 tab 02/17/20 Rx Atorvastatin Calcium [Lipitor] 20 mg PO HS #30 tab 02/17/20 Rx Digoxin [Lanoxin] 0.125 mg PO DAILY #30 tab 02/17/20 Rx Lisinopril [Zestril] 5 mg PO DAILY #30 tab 02/17/20 Rx Montelukast Sodium [Singulair] 10 mg PO QPM #30 tab 02/17/20 Rx Budesonide/Formoterol Fumarate 10.2 gm IH BID #1 hfa.aer.ad 02/18/20 Rx [Budesonide-Formoterol 80-4.5] Furosemide 20 mg PO DAILY PRN #30 tablet 02/18/20 Rx Nicotine Polacrilex [Nicotine Gum] 2 mg BUC Q2HR PRN #30 gum 02/18/20 Rx Allergies: No Known Allergies Allergy (Unverified 02/10/20 10:58) - Discharge Instructions Activity:: Activity as Tolerated Nourishment:: Fluid Restriction Diet (1L ), Heart Healthy Diet - Follow up Plan Referrals: [facility] [Primary Care Provider] - Disposition: HOME Quality - Care Measures CORE MEASURES:: HF
[2020-02-18] MEDS: Lorazepam 0.5 MG TAB PO PRN (15:31)
[2020-02-18] MEDS ORDERED: FLU VACC QS2020-21(6MOS UP)/PF 60 MCG/0.5 ML SYRINGE IM ONE (16:00)
[2020-02-18 16:09] VITALS: BP 119/83; TEMP 97.5
--- NOTE | 2020-02-21 05:01 | PQF ---
CLINICAL DOCUMENTATION CLARIFICATION FORM: Dear : Tiffany Kirk Date / Time: 02/21/2020 0501 Please exercise your independent, professional judgment in responding to the clarification form. Clinical indicators are provided on the bottom of this form for your review Based on the clinical indicators on admit, can you determine if Acute Systolic CHF was present at the time of admission? Diagnosis: Acute Systolic CHF Present on Admission (POA): [X ] Yes [ ] No [ ] Unable to determine Physician Signature: Date/Time: For continuity of documentation, please document condition throughout progress notes and discharge summary. Thank You. To be completed by CDI/Coding staff for physician review: Present Clinical Indicators - Signs / Symptoms / Labs Results and Location in Medical Record [X] BNP 42.3, trponin 0.064 Laboratory 02/09 [X] BNP 250.0, troponin I 0.194; 0.170, CK-MB 6.8; 5.9 Laboratory 02/11 [X] BP 131/96, Pulse 117, Resp 29, temp 98.3 Vital signs 02/09 [X] Echocardiogram: EF 20-25%, Suggestive of Takotsude cardiomyopathy Cardiac procedure 02/12 Dr Mejia [X] Acute hypoxic respiratory failure 2/2 COPD exacerbation vs Acute systolic CHF DS p1 02/17 Dr Kirk Present Risk Factors Results and Location in Medical Record [X] 64 year old Female H&P p1 02/09 Dr Ordaz [X] COPD H&P p1 02/09 Dr Ordaz [X] Acute respiratory failure H&P p1 02/09 Dr Ordaz [X] HTN H&P p1 02/09 Dr Ordaz [X] Smoker H&P p1 02/09 Dr Ordaz Present Treatments Results and Location in Medical Record [X] IVF Lasix 40 mg MAR 02/14 [X] IV Hydralazine 20 mg MAR 02/14 [X] IV Nitroglycerine 100 mg MAR 02/14 [X] LHC Cardiac procedure 02/14 Dr Griggs [X] Oxygen 3 L Respiratory panel 02/09 [X] Cardiology consult Consult Dr Kovacs 02/13 CDS/Human Resource Adviser Signature: Tami Marie Phone #: ext [phone] Date/Time: 02/21/2020 0501 This is a permanent part of the Medical Record [facility]
== END 2020-02-18 17:22 | disposition home or self-care (01) | DRG 286 ==
LOC: ERS 05:54 → ERHOLD 07:30 → OBSVTOIN 10:11 → T4-A 14:25 → 2SE 02-14 22:16
PROVIDERS: ADMIT Internal Medicine; ATTEND Internal Medicine
PROC: 4A023N7 Measurement of Cardiac Sampling and Pressure, Left Heart, Percutaneous Approach (ICD-10-PCS; principal; 2020-02-15)
PROC: B2111ZZ Fluoroscopy of Multiple Coronary Arteries using Low Osmolar Contrast (ICD-10-PCS; 2020-02-15)
PROC: B2151ZZ Fluoroscopy of Left Heart using Low Osmolar Contrast (ICD-10-PCS; 2020-02-15)
DX: I11.0 Hypertensive heart disease with heart failure (principal); J96.01 Acute respiratory failure with hypoxia; I50.21 Acute systolic (congestive) heart failure; I24.8 Other forms of acute ischemic heart disease; I42.8 Other cardiomyopathies; Z20.828 Contact with and (suspected) exposure to other viral communicable diseases; Z23 Encounter for immunization; J43.9 Emphysema, unspecified; F41.9 Anxiety disorder, unspecified; F17.210 Nicotine dependence, cigarettes, uncomplicated; I25.10 Atherosclerotic heart disease of native coronary artery without angina pectoris; R00.0 Tachycardia, unspecified; K30 Functional dyspepsia; Z79.899 Other long term (current) drug therapy; Z79.890 Hormone replacement therapy
CPT/HCPCS: 36415; 36416; 36600; 71045; 80048; 80053; 82553; 82805; 83605; 83880; 84484; 85025; 87040; 90471; 90662; 90732; 93005; 93306; 93458; 94640; 94760; 96365; 96375; 99152; G0008; G0009; G0378; J0360; J0456; J1644; J1650; J1885; J1940; J1956; J2250; J2920; J3010; J7512; J7620; Q9967; U0002

== ENCOUNTER 2021-10-24 13:43 | Inpatient (IN) | payer MEDICARE, OTHER ==
[~2021-10-24 13:43] MED LIST: Iopamidol 370 76% 100 ML VIAL ONE
[2021-10-24 14:25] LABS: #Lymphocytes 2.7 thou/uL (1.20-3.40); #Monocytes 1.8 thou/uL (0.11-0.59); #Neutrophils 10.5 thou/uL (1.40-6.50); %Basophils 0.2 % (0.0-1.0); %Eosinophils 0.1 % (0.0-10.0); %Lymphocytes 18.1 % (21.0-51.0); %Monocytes 11.9 % (0.0-10.0); %Neutrophils 69.7 % (42.0-75.0); Hemoglobin 14.6 g/dL (12.0-16.0); Mean Corpuscular HGB CONC 32.2 g/dL (32.0-36.0); Mean Corpuscular Hemoglobin 31.5 pg (27.0-31.0); Mean Corpuscular Volume 97.7 fL (78.0-98.0); Mean Platelet Volume 9.2 fL (7.4-10.4); Platelet Count 246 thou/uL (130-400); RBC Distribution Width 12.5 % (11.5-14.5); Red Blood Cell (RBC) Count 4.64 mill/uL (4.20-5.40)
[2021-10-24 14:41] LABS: ALT (SGPT) Less than 7 U/L (8-55); AST (SGOT) 11 U/L (5-34); Albumin 4.1 g/dL (3.4-4.8); Alkaline Phosphatase 119 U/L (40-110); Anion Gap 25 mmol/L (10-20); BUN (Urea Nitrogen) 14 mg/dL (9.8-20.1); Bilirubin, Total 0.7 mg/dL (0.2-1.2); Calc. Creatinine Clearance 0 mL/min (70-130); Calcium 9.5 mg/dL (7.8-10.44); Carbon Dioxide 19 mmol/L (23-31); Chloride 102 mmol/L (98-107); Estimated GFR 99; Globulin 2.8 g/dL (2.4-3.5); Glucose 122 mg/dL (80-115); Potassium 4.8 mmol/L (3.5-5.1); Protein, Total 6.9 g/dL (5.8-8.1); Sodium 141 mmol/L (136-145)
[2021-10-24] MEDS ORDERED: Azithromycin 500 MG VIAL ONE (15:23)
[2021-10-24] MEDS ORDERED: cefTRIAXone\\ROCEPHIN 1 GM VIAL ONE (15:23)
[2021-10-24 15:46] LABS: Bacteria/HPF None Seen HPF (None Seen); Bilirubin Negative (Negative); Blood, Urine 2+ (Negative); Clarity Clear (Clear); Glucose, Urine (Dipstick) Normal (Negative); Ketone, Urine Greater than 150 mg/dL (Negative); Leukocyte Negative Leu/uL (Negative); Nitrite Negative (Negative); Protein, Urine (Dipstick) 70 mg/dL (Neg-Trace); RBC/HPF 0-3 HPF (0-3); Specific Gravity, Urine 1.025 (1.002-1.036); Squamous Epithelial 0-3 HPF (0-3); Urobilinogen 3 mg/dL (Less than 2); WBC/HPF 0-3 HPF (0-3); pH, Urine 5.5 (5.0-9.0)
[2021-10-24] MEDS ORDERED: Furosemide 20 MG TAB PO PRN (17:32)
[2021-10-24] MEDS ORDERED: Acetaminophen 325 MG TAB PO PRN (17:33)
[2021-10-24] MEDS ORDERED: Ondansetron ODT 4 MG TAB PO PRN (17:33)
[2021-10-24 17:58] VITALS: BMI 18.7
[2021-10-24] MEDS ORDERED: methylPREDNISolone Sod Succ/PF 125 MG/2 ML VIAL IVP SCH (18:00)
[2021-10-24] MEDS: Nicotine 14 MG PATCH TD SCH (19:52)
[2021-10-24] MEDS: Sodium Chloride 0.9% 1,000 ML IV SCH (19:52)
[2021-10-24] MEDS: Montelukast Sodium 10 mg Tablet PO SCH (21:12)
[2021-10-24] MEDS: Atorvastatin Calcium 20 MG TAB PO SCH (21:12)
[2021-10-24] MEDS: Famotidine 20 MG TAB PO SCH (21:12)
[2021-10-24] MEDS: Aspirin 81 mg Enteric Coated Tablet PO SCH (21:12)
[2021-10-24] MEDS: methylPREDNISolone Sod Succ 40 MG VIAL IVP SCH (21:12)
[2021-10-24] MEDS: Doxycycline 100 MG CAP PO SCH (21:15)
[2021-10-25] MEDS: Sodium Chloride 0.9% 1,000 ML IV SCH (01:06)
[2021-10-25] MEDS: methylPREDNISolone Sod Succ 40 MG VIAL IVP SCH ×3 (05:14→21:49)
[2021-10-25 05:55] LABS: #Lymphocytes 0.7 thou/uL (1.20-3.40); #Monocytes 0.2 thou/uL (0.11-0.59); #Neutrophils 7.7 thou/uL (1.40-6.50); %Basophils 0.3 % (0.0-1.0); %Eosinophils 0.1 % (0.0-10.0); %Lymphocytes 8.5 % (21.0-51.0); %Monocytes 2.7 % (0.0-10.0); %Neutrophils 88.5 % (42.0-75.0); Mean Corpuscular HGB CONC 31.3 g/dL (32.0-36.0); Mean Corpuscular Hemoglobin 30.7 pg (27.0-31.0); Mean Corpuscular Volume 98.2 fL (78.0-98.0); Mean Platelet Volume 9.3 fL (7.4-10.4); Platelet Count 206 thou/uL (130-400); RBC Distribution Width 12.5 % (11.5-14.5); Red Blood Cell (RBC) Count 4.25 mill/uL (4.20-5.40); White Blood Cell (WBC) Count 8.7 thou/uL (4.8-10.8)
[2021-10-25 06:25] LABS: Anion Gap 13 mmol/L (10-20); BUN (Urea Nitrogen) 10 mg/dL (9.8-20.1); Calc. Creatinine Clearance 85 mL/min (70-130); Calcium 8.9 mg/dL (7.8-10.44); Carbon Dioxide 24 mmol/L (23-31); Chloride 109 mmol/L (98-107); Estimated GFR 101; Glucose 194 mg/dL (80-115); Potassium 4.2 mmol/L (3.5-5.1); Sodium 142 mmol/L (136-145)
[2021-10-25] MEDS: Enoxaparin Sodium 40 MG/0.4 ML SYRINGE SC SCH (07:45)
[2021-10-25] MEDS: Lisinopril 5 MG TAB PO SCH (07:46)
[2021-10-25] MEDS: Doxycycline 100 MG CAP PO SCH ×2 (07:46→20:12)
[2021-10-25] MEDS: Digoxin 0.125 MG TAB PO SCH (07:46)
[2021-10-25] MEDS: Famotidine 20 MG TAB PO SCH ×2 (07:46→20:12)
[2021-10-25] MEDS ORDERED: hydrALAZINE 20 MG/ML VIAL SLOW IVP PRN (13:11)
[2021-10-25] MEDS: cefTRIAXone\\ROCEPHIN 1 GM in Sodium Chloride 0.9% 100 ML IVPB SCH (16:07)
[2021-10-25] MEDS: Nicotine 14 MG PATCH TD SCH (17:47)
[2021-10-25] MEDS: Varenicline Tartrate 0.5 MG TAB PO SCH (17:47)
[2021-10-25] MEDS: Mometasone 100 MCG/Formoterol 5 MCG 120 PUFF INHALER INH SCH (18:52)
[2021-10-25] MEDS: Montelukast Sodium 10 mg Tablet PO SCH (20:12)
[2021-10-25] MEDS: Atorvastatin Calcium 20 MG TAB PO SCH (20:12)
[2021-10-25] MEDS: Aspirin 81 mg Enteric Coated Tablet PO SCH (20:13)
[2021-10-25] MEDS ORDERED: Benzonatate 100 MG CAP PO SCH (23:59)
[2021-10-26] MEDS: methylPREDNISolone Sod Succ 40 MG VIAL IVP SCH ×2 (05:38→14:56)
[2021-10-26] MEDS: Mometasone 100 MCG/Formoterol 5 MCG 120 PUFF INHALER INH SCH ×2 (06:36→18:49)
[2021-10-26] MEDS: Doxycycline 100 MG CAP PO SCH ×2 (08:25→20:28)
[2021-10-26] MEDS: Famotidine 20 MG TAB PO SCH ×2 (08:25→20:28)
[2021-10-26] MEDS: Benzonatate 100 MG CAP PO SCH ×3 (08:25→20:28)
[2021-10-26] MEDS: Lisinopril 5 MG TAB PO SCH (08:25)
[2021-10-26] MEDS: Enoxaparin Sodium 40 MG/0.4 ML SYRINGE SC SCH (08:25)
[2021-10-26] MEDS: Digoxin 0.125 MG TAB PO SCH (08:25)
[2021-10-26] MEDS: Varenicline Tartrate 0.5 MG TAB PO SCH ×2 (08:25→17:39)
[2021-10-26] MEDS: cefTRIAXone\\ROCEPHIN 1 GM in Sodium Chloride 0.9% 100 ML IVPB SCH (14:56)
[2021-10-26] MEDS: Nicotine 14 MG PATCH TD SCH (17:40)
[2021-10-26] MEDS: Atorvastatin Calcium 20 MG TAB PO SCH (20:28)
[2021-10-26] MEDS: Aspirin 81 mg Enteric Coated Tablet PO SCH (20:29)
[2021-10-26] MEDS: Montelukast Sodium 10 mg Tablet PO SCH (20:29)
[2021-10-27] MEDS: Mometasone 100 MCG/Formoterol 5 MCG 120 PUFF INHALER INH SCH ×2 (06:32→18:52)
[2021-10-27] MEDS: predniSONE 20 MG TAB PO SCH (08:26)
[2021-10-27] MEDS: Varenicline Tartrate 0.5 MG TAB PO SCH ×3 (08:26→17:46)
[2021-10-27] MEDS: Enoxaparin Sodium 40 MG/0.4 ML SYRINGE SC SCH (08:26)
[2021-10-27] MEDS: Doxycycline 100 MG CAP PO SCH ×2 (08:26→20:19)
[2021-10-27] MEDS: Famotidine 20 MG TAB PO SCH ×2 (08:27→20:19)
[2021-10-27] MEDS: Lisinopril 5 MG TAB PO SCH (08:27)
[2021-10-27] MEDS: Digoxin 0.125 MG TAB PO SCH (08:29)
[2021-10-27] MEDS: Benzonatate 100 MG CAP PO SCH ×3 (08:29→20:19)
[2021-10-27] MEDS: cefTRIAXone\\ROCEPHIN 1 GM in Sodium Chloride 0.9% 100 ML IVPB SCH (14:46)
[2021-10-27] MEDS: Nicotine 14 MG PATCH TD SCH (17:45)
[2021-10-27] MEDS: Montelukast Sodium 10 mg Tablet PO SCH (20:19)
[2021-10-27] MEDS: Aspirin 81 mg Enteric Coated Tablet PO SCH (20:19)
[2021-10-27] MEDS: Atorvastatin Calcium 20 MG TAB PO SCH (20:19)
[2021-10-28] MEDS: Mometasone 100 MCG/Formoterol 5 MCG 120 PUFF INHALER INH SCH (06:31)
[2021-10-28 08:34] VITALS: BP 155/92; TEMP 97.7
[2021-10-28] MEDS: Doxycycline 100 MG CAP PO SCH (08:34)
[2021-10-28] MEDS: predniSONE 20 MG TAB PO SCH (08:34)
[2021-10-28] MEDS: Lisinopril 5 MG TAB PO SCH (08:34)
[2021-10-28] MEDS: Benzonatate 100 MG CAP PO SCH (08:34)
[2021-10-28] MEDS: Enoxaparin Sodium 40 MG/0.4 ML SYRINGE SC SCH (08:35)
[2021-10-28] MEDS: Digoxin 0.125 MG TAB PO SCH (08:35)
[2021-10-28] MEDS: Famotidine 20 MG TAB PO SCH (08:35)
[2021-10-28] MEDS: Varenicline Tartrate 0.5 MG TAB PO SCH (08:35)
== END 2021-10-28 11:28 | disposition home or self-care (01) | DRG 193 ==
LOC: ERS 13:43 → T4-A 15:48
PROVIDERS: ADMIT Hospitalist; ATTEND Family Medicine
DX: J15.9 Unspecified bacterial pneumonia (principal); J96.21 Acute and chronic respiratory failure with hypoxia; J44.0 Chronic obstructive pulmonary disease with (acute) lower respiratory infection; J44.1 Chronic obstructive pulmonary disease with (acute) exacerbation; I11.0 Hypertensive heart disease with heart failure; I50.9 Heart failure, unspecified; E78.5 Hyperlipidemia, unspecified; F17.210 Nicotine dependence, cigarettes, uncomplicated; Z20.822 Contact with and (suspected) exposure to COVID-19; Z79.899 Other long term (current) drug therapy; Z79.51 Long term (current) use of inhaled steroids; Z99.81 Dependence on supplemental oxygen; Z79.82 Long term (current) use of aspirin; Z71.6 Tobacco abuse counseling
CPT/HCPCS: 36415; 71045; 71260; 80048; 80053; 81003; 81015; 83880; 84484; 85025; 87040; 87086; 93005; 94640; 96361; 96365; 96375; J0456; J0696; J1650; J2920; J3490; J7050; J7512; J7620; Q9967; U0003; U0005